=== PATIENT | female | born 1935 | race Caucasian/White ===

== ENCOUNTER 2018-01-10 07:20 | Emergency (ER) | payer MEDICARE, OTHER ==
[~2018-01-10] VITALS: Ht 144.8 cm; Wt 95.0 kg
[2018-01-10] MEDS ORDERED: SODIUM CHLORIDE FLUSH 10ML SYR IVF ONE ×2 (07:30→08:00)
[2018-01-10] MEDS ORDERED: PLEASE ENTER ALLERGIES MC SCH (07:30)
[2018-01-10] MEDS ORDERED: ASPIRIN 81 MG TABLET CHEW PO ONE (07:30)
[2018-01-10 07:45] LABS: BASOPHILS # (AUTO) 0.03 x10^3/uL (0-0.1); BASOPHILS % (AUTO) 0 % (0-1); EOSINOPHILS # (AUTO) 0.13 x10^3/uL (0-0.4); EOSINOPHILS % (AUTO) 2 % (1-7); LYMPHOCYTES # (AUTO) 0.93 x10^3/uL (1-3.4); LYMPHOCYTES % (AUTO) 11 % (22-44); MD NO; MEAN CORPUSCULAR HEMOGLOBIN 31.4 pg (27.0-34.8); MEAN CORPUSCULAR HGB CONC 33.8 g/dL (32.4-35.8); MEAN CORPUSCULAR VOLUME 92.8 fL (80-100); MEAN PLATELET VOLUME 8.5 fL (7.4-10.4); MONOCYTES # (AUTO) 0.85 x10^3/uL (0.2-0.8); MONOCYTES % (AUTO) 10 % (2-9); NEUTROPHILS # (AUTO) 6.34 x10^3/uL (1.8-6.8); NEUTROPHILS % (AUTO) 77 % (42-75); PLATELET COUNT 182 x10^3/uL (130-400); RED BLOOD COUNT 4.37 x10^6/uL (3.82-5.3)
[2018-01-10 07:56] LABS: ALANINE AMINOTRANSFERASE 20 U/L (12-78); ALBUMIN 3.5 g/dL (3.4-5.0); ANION GAP 10 mmol/L (5-15); CALCIUM 8.7 mg/dL (8.5-10.1); CHLORIDE 102 mmol/L (98-107); CREATININE 1.25 mg/dL (0.55-1.02)
[2018-01-10] MEDS ORDERED: SODIUM CHLORIDE 0.9% 1,000ML IVBOLUS ONE (08:00)
[2018-01-10] MEDS ORDERED: ACETAMINOPHEN 325 MG TABLET PO ONE (08:00)
[2018-01-10 08:01] LABS: ALKALINE PHOSPHATASE 62 U/L (45-117); BILIRUBIN,TOTAL 0.8 mg/dL (0.2-1.0); FREE T4 (FREE THYROXINE) 1.15 ng/dL (0.76-1.46); TOTAL PROTEIN 7.4 g/dL (6.4-8.2); TROPONIN I < 0.015 ng/mL (0.000-0.045)
[2018-01-10 08:06] LABS: THYROID STIMULATING HORMONE 0.942 mIU/L (0.358-3.740)
[2018-01-10] MEDS ORDERED: ACETAMINOPHEN 325 MG TABLET ONE (09:03)
[2018-01-10] MEDS ORDERED: ASPIRIN 81 MG TABLET CHEW ONE (09:03)
[2018-01-10 09:07] LABS: MICROSCOPIC NOT IND
[2018-01-10 09:14] LABS: CULTURE INDICATED? NO
[2018-01-10 10:08] VITALS: BP 127/63
[2018-01-10] MEDS ORDERED: ROSU5TAB PO (14:09)
[2018-01-10] MEDS ORDERED: LISI5TAB7 PO (14:09)
[2018-01-10] MEDS ORDERED: INSU100I7 SQ-INSULIN ×3 (14:09)
[2018-01-10] MEDS ORDERED: ASPI-496 PO (14:09)
== END 2018-01-10 10:11 | disposition home or self-care (01) ==
LOC: ED 08:45
DX: R53.1 Weakness (principal); I10 Essential (primary) hypertension; E11.9 Type 2 diabetes mellitus without complications; E78.00 Pure hypercholesterolemia, unspecified; W19.XXXA Unspecified fall, initial encounter; Y93.89 Activity, other specified; Y92.89 Other specified places as the place of occurrence of the external cause; Y99.9 Unspecified external cause status
CPT/HCPCS: 36415; 71045; 80053; 81003; 83605; 83735; 83880; 84439; 84443; 84484; 85025; 87040; 93005; 96360; 99291; J7030

== ENCOUNTER 2018-08-25 00:17 | Inpatient (IN) | payer MEDICARE, OTHER ==
[~2018-08-25] VITALS: Ht 157.5 cm; Wt 99.7 kg
[~2018-08-25 00:17] MED LIST: APIX2.5T PO; ASPI-496 PO; INSU100I7 SQ-INSULIN; LISI5TAB7 PO; METO25TA35 PO; OSEL75CA PO; QUET25TA PO; ROSU5TAB PO
[2018-08-25] MEDS ORDERED: DILTIAZEM 5 MG/ML, 5ML ONE (00:26)
[2018-08-25] MEDS ORDERED: DILTIAZEM 5 MG/ML, 5ML IV ONE (00:30)
[2018-08-25 00:44] LABS: BASOPHILS # (AUTO) 0.07 x10^3/uL (0-0.1); BASOPHILS % (AUTO) 1 % (0-1); EOSINOPHILS # (AUTO) 0.27 x10^3/uL (0-0.4); EOSINOPHILS % (AUTO) 3 % (1-7); LYMPHOCYTES # (AUTO) 1.69 x10^3/uL (1-3.4); LYMPHOCYTES % (AUTO) 15 % (22-44); MD NO; MEAN CORPUSCULAR HEMOGLOBIN 30.5 pg (27.0-34.8); MEAN CORPUSCULAR HGB CONC 32.7 g/dL (32.4-35.8); MEAN CORPUSCULAR VOLUME 93.3 fL (80-100); MEAN PLATELET VOLUME 8.9 fL (7.4-10.4); MONOCYTES # (AUTO) 0.63 x10^3/uL (0.2-0.8); MONOCYTES % (AUTO) 6 % (2-9); NEUTROPHILS # (AUTO) 8.37 x10^3/uL (1.8-6.8); NEUTROPHILS % (AUTO) 76 % (42-75); PLATELET COUNT 207 x10^3/uL (130-400); RED BLOOD COUNT 4.46 x10^6/uL (3.82-5.3); RED CELL DISTRIBUTION WIDTH 14.4 % (9.6-15.2)
[2018-08-25] MEDS ORDERED: INSULIN HUMALOG (00:51)
[2018-08-25] MEDS ORDERED: LISI-167 PO (00:51)
[2018-08-25 00:55] LABS: ALANINE AMINOTRANSFERASE 28 U/L (12-78); ALBUMIN 3.1 g/dL (3.4-5.0); ANION GAP 9 mmol/L (5-15); CHLORIDE 106 mmol/L (98-107); CREATININE 1.12 mg/dL (0.55-1.02)
[2018-08-25 01:00] LABS: ALKALINE PHOSPHATASE 87 U/L (45-117); BILIRUBIN,TOTAL 0.5 mg/dL (0.2-1.0); TOTAL PROTEIN 7.5 g/dL (6.4-8.2); TROPONIN I < 0.015 ng/mL (0.000-0.045)
[2018-08-25] MEDS ORDERED: DILTIAZEM 125 MG in SODIUM CHLORIDE 0.9% 100 ML IV PRN (01:30)
[2018-08-25] MEDS ORDERED: METOPROLOL 1 MG/ML, 5ML ONE (02:40)
[2018-08-25] MEDS ORDERED: METOPROLOL 1 MG/ML, 5ML IVPush PRN (03:00)
[2018-08-25 03:15] VITALS: BP 117/80
[2018-08-25] MEDS ORDERED: ONDANSETRON 2MG/ML, 2ML IVPush PRN (03:30)
[2018-08-25] MEDS ORDERED: FUROSEMIDE 20 MG/2 ML IV ONE (03:30)
[2018-08-25] MEDS ORDERED: ACETAMINOPHEN 325 MG TABLET PO PRN (03:30)
[2018-08-25] MEDS ORDERED: APIXABAN 5 MG TABLET PO SCH (04:00)
[2018-08-25 04:40] LABS: HEMOGLOBIN A1C 8.1 % (4.2-6.3)
[2018-08-25] MEDS ORDERED: METOPROLOL TARTRATE 25 MG TABLET PO SCH (06:00)
[2018-08-25] MEDS ORDERED: INSULIN LISPRO 100 UNITS/ML, PEN SQ-INSULIN SCH (07:00)
[2018-08-25] MEDS ORDERED: [UNRECOGNIZED DRUG - OTHER] SQ-INSULIN SCH ×3 (07:30→16:30)
[2018-08-25] MEDS ORDERED: INSULIN LISPRO SQ-INSULIN SCH ×3 (07:30→16:30)
[2018-08-25] MEDS ORDERED: INSULIN NPL SQ-INSULIN SCH ×3 (07:30→16:30)
[2018-08-25] MEDS ORDERED: APIXABAN 2.5 MG TABLET PO SCH (09:00)
[2018-08-25] MEDS ORDERED: ASPIRIN 81 MG TABLET CHEW PO SCH (09:00)
[2018-08-25] MEDS ORDERED: ATORVASTATIN 10 MG TABLET PO SCH (21:00)
== END 2018-08-25 05:01 | disposition left against medical advice (07) | DRG 308 ==
LOC: EDBD 00:17 → ED 01:43 → EDIP 01:53 → MERGE 01:53 → 5SO 03:11
PROVIDERS: ADMIT Internal Medicine; ATTEND Internal Medicine
DX: I48.91 Unspecified atrial fibrillation (principal); I50.31 Acute diastolic (congestive) heart failure; Z68.41 Body mass index [BMI] 40.0-44.9, adult; I11.0 Hypertensive heart disease with heart failure; E11.65 Type 2 diabetes mellitus with hyperglycemia; E66.01 Morbid (severe) obesity due to excess calories; Z53.21 Procedure and treatment not carried out due to patient leaving prior to being seen by health care provider; E78.5 Hyperlipidemia, unspecified; Z79.01 Long term (current) use of anticoagulants; Z79.4 Long term (current) use of insulin; Z79.82 Long term (current) use of aspirin; Z79.899 Other long term (current) drug therapy; Z91.19 Patient's noncompliance with other medical treatment and regimen
CPT/HCPCS: 36415; 71045; 80053; 82962; 83036; 83735; 83880; 84443; 84484; 85025; 93005; 96365; 96375; 96376; G0378

== ENCOUNTER 2018-09-01 03:00 | Inpatient (IN) | payer MEDICARE, OTHER ==
[~2018-09-01] VITALS: Ht 157.5 cm; Wt 101.8 kg
[~2018-09-01 03:00] MED LIST changes: +INSULIN HUMALOG; +LISI-167 PO
[2018-09-01] MEDS ORDERED: ADENOSINE 6 MG/2 ML ONE (03:08)
[2018-09-01] MEDS ORDERED: DILTIAZEM 5 MG/ML, 5ML ONE ×2 (03:19→04:25)
[2018-09-01] MEDS ORDERED: DILTIAZEM 125 MG in SODIUM CHLORIDE 0.9% 100 ML IV SCH (03:21)
[2018-09-01] MEDS ORDERED: DILTIAZEM 5 MG/ML, 5ML IVPush STA (03:21)
[2018-09-01 03:29] LABS: BASOPHILS # (AUTO) 0.03 x10^3/uL (0-0.1); BASOPHILS % (AUTO) 0 % (0-1); EOSINOPHILS # (AUTO) 0.11 x10^3/uL (0-0.4); EOSINOPHILS % (AUTO) 1 % (1-7); LYMPHOCYTES # (AUTO) 1.19 x10^3/uL (1-3.4); LYMPHOCYTES % (AUTO) 13 % (22-44); MD NO; MEAN CORPUSCULAR HEMOGLOBIN 31.1 pg (27.0-34.8); MEAN CORPUSCULAR HGB CONC 33.2 g/dL (32.4-35.8); MEAN CORPUSCULAR VOLUME 93.7 fL (80-100); MEAN PLATELET VOLUME 8.5 fL (7.4-10.4); MONOCYTES # (AUTO) 0.53 x10^3/uL (0.2-0.8); MONOCYTES % (AUTO) 6 % (2-9); NEUTROPHILS % (AUTO) 80 % (42-75); PLATELET COUNT 253 x10^3/uL (130-400); RED BLOOD COUNT 4.44 x10^6/uL (3.82-5.3); RED CELL DISTRIBUTION WIDTH 14.8 % (9.6-15.2)
[2018-09-01] MEDS ORDERED: ADENOSINE 6 MG/2 ML IVPush ONE (03:30)
[2018-09-01] MEDS ORDERED: SODIUM CHLORIDE FLUSH 10ML SYR IVF ONE (03:30)
[2018-09-01 03:40] LABS: INTERNATIONAL NORMALIZED RATIO 1.06 (0.93-1.1); PROTHROMBIN TIME 10.9 Seconds (9.6-11.5)
[2018-09-01 03:41] LABS: ALANINE AMINOTRANSFERASE 27 U/L (12-78); ANION GAP 12 mmol/L (5-15); CHLORIDE 102 mmol/L (98-107); CREATININE 1.22 mg/dL (0.55-1.02)
[2018-09-01] MEDS ORDERED: ACETAMINOPHEN 325 MG TABLET ONE (03:45)
[2018-09-01 03:46] LABS: ALKALINE PHOSPHATASE 85 U/L (45-117); BILIRUBIN,TOTAL 0.9 mg/dL (0.2-1.0); TOTAL PROTEIN 7.6 g/dL (6.4-8.2); TROPONIN I 0.027 ng/mL (0.000-0.045)
[2018-09-01] MEDS ORDERED: LORazepam 2 MG/ML, 1ML IVPush ONE (04:00)
[2018-09-01] MEDS ORDERED: DIGOXIN 0.25 MG/ML, 2ML IVPush ONE ×2 (04:00→05:00)
[2018-09-01] MEDS ORDERED: ACETAMINOPHEN 325 MG TABLET PO ONE (04:00)
[2018-09-01] MEDS ORDERED: LORazepam 2 MG/ML, 1ML ONE (04:01)
[2018-09-01] MEDS ORDERED: DIGOXIN 0.25 MG/ML, 2ML ONE (04:01)
[2018-09-01] MEDS ORDERED: FUROSEMIDE 20 MG/2 ML ONE (04:18)
[2018-09-01] MEDS ORDERED: FUROSEMIDE 20 MG/2 ML IV ONE ×2 (04:30→05:30)
[2018-09-01] MEDS ORDERED: DILTIAZEM 5 MG/ML, 5ML IVPush ONE (04:30)
[2018-09-01] MEDS ORDERED: METOPROLOL 1 MG/ML, 5ML ONE (04:54)
[2018-09-01] MEDS ORDERED: METOPROLOL 1 MG/ML, 5ML IVPush ONE (05:00)
[2018-09-01] MEDS ORDERED: PROMETHAZINE 25 MG/ML, 1ML IM PRN (05:30)
[2018-09-01] MEDS ORDERED: BISACODYL 10 MG SUPP PR PRN (05:30)
[2018-09-01] MEDS ORDERED: ONDANSETRON ODT 4 MG PO PRN (05:30)
[2018-09-01] MEDS ORDERED: morphine SULFATE 10 MG/ML, 1ML IVPush PRN (05:30)
[2018-09-01] MEDS ORDERED: ONDANSETRON 2MG/ML, 2ML IVPush PRN (05:30)
[2018-09-01] MEDS ORDERED: LABETALOL 5MG/ML, 20ML IVPush PRN (05:30)
[2018-09-01] MEDS ORDERED: POLYETHYLENE GLYCOL 17 GM PACKET PO PRN (05:30)
[2018-09-01] MEDS ORDERED: DOCUSATE 100 MG CAPSULE PO PRN (05:30)
[2018-09-01 05:35] LABS: MICROSCOPIC NOT IND
[2018-09-01 05:40] LABS: CULTURE INDICATED? NO
[2018-09-01] MEDS ORDERED: ASPIRIN 325 MG TABLET EC PO SCH (06:00)
[2018-09-01] MEDS: METOPROLOL TARTRATE 25 MG TABLET PO SCH ×2 (06:00→17:46)
[2018-09-01 06:02] LABS: HEMOGLOBIN A1C 8.1 % (4.2-6.3)
[2018-09-01 06:30] VITALS: BP 95/61
[2018-09-01 06:56] LABS: FREE T4 (FREE THYROXINE) 1.47 ng/dL (0.76-1.46); THYROID STIMULATING HORMONE 0.973 mIU/L (0.358-3.740)
[2018-09-01] MEDS: INSULIN LISPRO 100 UNITS/ML, PEN SQ-INSULIN SCH ×4 (07:00→20:59)
[2018-09-01 08:34] VITALS: BP 135/73
[2018-09-01] MEDS: RISPERIDONE 0.5 MG TABLET PO SCH ×2 (09:00→20:59)
[2018-09-01] MEDS ORDERED: LISINOPRIL 10 MG TABLET PO SCH (09:00)
[2018-09-01] MEDS ORDERED: RISPERIDONE 1 MG TABLET ONE ×2 (09:38→20:49)
[2018-09-01] MEDS: FUROSEMIDE 20 MG/2 ML IV SCH ×3 (09:43→17:00)
[2018-09-01] MEDS: APIXABAN 5 MG TABLET PO SCH ×2 (11:33→20:58)
[2018-09-01] MEDS: DILTIAZEM 60 MG TABLET PO SCH ×3 (11:34→20:58)
[2018-09-01] MEDS: DILTIAZEM 125 MG in SODIUM CHLORIDE 0.9% 100 ML IV PRN ×2 (14:23→22:39)
[2018-09-01 15:10] VITALS: BP 119/67
[2018-09-01 19:35] VITALS: BP 125/73
[2018-09-01] MEDS: ATORVASTATIN 20 MG TABLET PO SCH (20:57)
[2018-09-02] VITALS (10 sets, daily range): BP systolic 96–150; BP diastolic 66–96
[2018-09-02] MEDS ORDERED: LORazepam 2 MG/ML, 1ML IVPush ONE
[2018-09-02] MEDS: ACETAMINOPHEN 325 MG TABLET PO PRN ×2 (04:50→18:30)
[2018-09-02 05:24] LABS: BASOPHILS # (AUTO) 0.03 x10^3/uL (0-0.1); BASOPHILS % (AUTO) 0 % (0-1); EOSINOPHILS % (AUTO) 2 % (1-7); LYMPHOCYTES # (AUTO) 1.11 x10^3/uL (1-3.4); LYMPHOCYTES % (AUTO) 13 % (22-44); MD NO; MEAN CORPUSCULAR HGB CONC 32.8 g/dL (32.4-35.8); MEAN CORPUSCULAR VOLUME 94.5 fL (80-100); MEAN PLATELET VOLUME 8.4 fL (7.4-10.4); MONOCYTES # (AUTO) 0.53 x10^3/uL (0.2-0.8); MONOCYTES % (AUTO) 6 % (2-9); NEUTROPHILS % (AUTO) 78 % (42-75); PLATELET COUNT 234 x10^3/uL (130-400); RED BLOOD COUNT 4.13 x10^6/uL (3.82-5.3); RED CELL DISTRIBUTION WIDTH 14.6 % (9.6-15.2)
[2018-09-02 05:31] LABS: ALANINE AMINOTRANSFERASE 21 U/L (12-78); ALBUMIN 2.7 g/dL (3.4-5.0); ANION GAP 11 mmol/L (5-15); CALCIUM 8.8 mg/dL (8.5-10.1); CHLORIDE 104 mmol/L (98-107); CHOLESTEROL, TOTAL 136 mg/dL (140-239); CREATININE 0.97 mg/dL (0.55-1.02)
[2018-09-02 05:34] LABS: ALKALINE PHOSPHATASE 72 U/L (45-117); BILIRUBIN,TOTAL 1.2 mg/dL (0.2-1.0); CHOL/HDL RATIO 3.3; HDL CHOL % 30 % (28-40); HDL CHOLESTEROL (DIRECT) 41 mg/dL (40-60); LDL CHOLESTEROL,CALCULATED 76 mg/dL (54-169); LDL/HDL RATIO 1.9 (0.5-3.0); TOTAL PROTEIN 6.7 g/dL (6.4-8.2); TRIGLYCERIDES 95 mg/dL (50-200); VLDL CHOLESTEROL 19 mg/dL (0-25)
[2018-09-02] MEDS: METOPROLOL TARTRATE 25 MG TABLET PO SCH ×2 (06:07→17:14)
[2018-09-02] MEDS: INSULIN LISPRO 100 UNITS/ML, PEN SQ-INSULIN SCH ×4 (07:47→21:00)
[2018-09-02] MEDS: DILTIAZEM 125 MG in SODIUM CHLORIDE 0.9% 100 ML IV PRN ×2 (09:23→12:43)
[2018-09-02] MEDS: DILTIAZEM 60 MG TABLET PO SCH ×4 (09:24→23:21)
[2018-09-02] MEDS: APIXABAN 5 MG TABLET PO SCH ×4 (09:24→23:21)
[2018-09-02] MEDS: FUROSEMIDE 20 MG/2 ML IV SCH ×2 (09:24→17:15)
[2018-09-02] MEDS: RISPERIDONE 0.5 MG TABLET PO SCH ×4 (09:25→23:22)
[2018-09-02] MEDS: METOPROLOL 1 MG/ML, 5ML IVPush PRN (12:05)
[2018-09-02] MEDS ORDERED: ZIPRASIDONE 20 MG INJ IM PRN (13:00)
[2018-09-02] MEDS: ATORVASTATIN 20 MG TABLET PO SCH ×3 (21:17→23:57)
[2018-09-03] VITALS (9 sets, daily range): BP systolic 108–164; BP diastolic 71–94
[2018-09-03] MEDS ORDERED: ALBUTEROL/IPRATROPIUM 2.5MG/0.5MG, 3 ML ONE (03:59)
[2018-09-03] MEDS ORDERED: FUROSEMIDE 40 MG/4 ML IV ONE (04:00)
[2018-09-03] MEDS ORDERED: ALBUTEROL/IPRATROPIUM 2.5MG/0.5MG, 3 ML NPPB PRN (04:30)
[2018-09-03] MEDS ORDERED: ZIPRASIDONE 20 MG INJ IM ONE (05:30)
[2018-09-03] MEDS ORDERED: DILTIAZEM 125 MG in SODIUM CHLORIDE 0.9% 100 ML IV PRN (05:30)
[2018-09-03] MEDS ORDERED: RISPERIDONE 1 MG TABLET ONE (08:14)
[2018-09-03] MEDS: METOPROLOL TARTRATE 25 MG TABLET PO SCH ×2 (08:28→17:11)
[2018-09-03] MEDS: APIXABAN 5 MG TABLET PO SCH ×3 (08:29→21:30)
[2018-09-03] MEDS: INSULIN LISPRO 100 UNITS/ML, PEN SQ-INSULIN SCH ×4 (08:41→20:09)
[2018-09-03] MEDS: DILTIAZEM 60 MG TABLET PO SCH (08:44)
[2018-09-03] MEDS: RISPERIDONE 0.5 MG TABLET PO SCH ×2 (08:45→21:29)
[2018-09-03] MEDS: DILTIAZEM 125 MG in SODIUM CHLORIDE 0.9% 100 ML IV PRN ×2 (10:25→23:15)
[2018-09-03] MEDS: FUROSEMIDE 20 MG/2 ML IV SCH ×2 (10:26→17:11)
[2018-09-03] MEDS: METOPROLOL 1 MG/ML, 5ML IVPush PRN ×2 (10:26→15:24)
[2018-09-03] MEDS: DILTIAZEM 120 MG TABLET PO SCH (21:28)
[2018-09-03] MEDS: ATORVASTATIN 20 MG TABLET PO SCH (21:30)
[2018-09-04] MEDS: METOPROLOL 1 MG/ML, 5ML IVPush PRN (02:35)
[2018-09-04 02:56] VITALS: BP 136/83
[2018-09-04] MEDS: METOPROLOL TARTRATE 25 MG TABLET PO SCH ×2 (05:43→17:33)
[2018-09-04 07:42] VITALS: BP 116/71
[2018-09-04] MEDS: INSULIN LISPRO 100 UNITS/ML, PEN SQ-INSULIN SCH ×4 (08:07→20:17)
[2018-09-04] MEDS: APIXABAN 5 MG TABLET PO SCH ×2 (08:09→20:19)
[2018-09-04] MEDS: DILTIAZEM 120 MG TABLET PO SCH ×3 (08:11→20:17)
[2018-09-04] MEDS: FUROSEMIDE 20 MG/2 ML IV SCH ×2 (08:12→17:35)
[2018-09-04] MEDS: RISPERIDONE 0.5 MG TABLET PO SCH (09:00)
[2018-09-04] MEDS ORDERED: DILTIAZEM 125 MG in SODIUM CHLORIDE 0.9% 100 ML IV PRN (10:30)
[2018-09-04 14:09] VITALS: BP 107/62
[2018-09-04 17:32] VITALS: BP 126/72
[2018-09-04 18:32] VITALS: BP 100/67
[2018-09-04] MEDS: QUETIAPINE 25MG TABLET PO SCH (20:19)
[2018-09-04] MEDS: ATORVASTATIN 20 MG TABLET PO SCH (20:19)
[2018-09-04] MEDS ORDERED: QUETIAPINE 25MG TABLET PO SCH (21:00)
[2018-09-05 02:00] VITALS: BP 125/87
[2018-09-05] MEDS: METOPROLOL TARTRATE 25 MG TABLET PO SCH ×2 (05:20→18:09)
[2018-09-05 05:30] LABS: BASOPHILS # (AUTO) 0.09 x10^3/uL (0-0.1); BASOPHILS % (AUTO) 1 % (0-1); EOSINOPHILS # (AUTO) 0.27 x10^3/uL (0-0.4); EOSINOPHILS % (AUTO) 3 % (1-7); LYMPHOCYTES # (AUTO) 1.52 x10^3/uL (1-3.4); LYMPHOCYTES % (AUTO) 16 % (22-44); MD NO; MEAN CORPUSCULAR HEMOGLOBIN 30.8 pg (27.0-34.8); MEAN CORPUSCULAR HGB CONC 32.9 g/dL (32.4-35.8); MEAN CORPUSCULAR VOLUME 93.8 fL (80-100); MEAN PLATELET VOLUME 8.5 fL (7.4-10.4); MONOCYTES # (AUTO) 0.83 x10^3/uL (0.2-0.8); MONOCYTES % (AUTO) 9 % (2-9); NEUTROPHILS # (AUTO) 6.77 x10^3/uL (1.8-6.8); NEUTROPHILS % (AUTO) 71 % (42-75); PLATELET COUNT 238 x10^3/uL (130-400); RED BLOOD COUNT 4.18 x10^6/uL (3.82-5.3); RED CELL DISTRIBUTION WIDTH 14.6 % (9.6-15.2)
[2018-09-05 05:40] LABS: ANION GAP 9 mmol/L (5-15); CHLORIDE 99 mmol/L (98-107)
[2018-09-05 05:41] LABS: CREATININE 1.32 mg/dL (0.55-1.02)
[2018-09-05 07:51] VITALS: BP 118/82
[2018-09-05] MEDS: INSULIN LISPRO 100 UNITS/ML, PEN SQ-INSULIN SCH ×4 (07:55→20:17)
[2018-09-05] MEDS: APIXABAN 5 MG TABLET PO SCH ×2 (07:57→20:04)
[2018-09-05] MEDS: DILTIAZEM 120 MG TABLET PO SCH ×3 (07:57→20:04)
[2018-09-05] MEDS: QUETIAPINE 25MG TABLET PO SCH ×2 (07:57→20:05)
[2018-09-05] MEDS: FUROSEMIDE 20 MG/2 ML IV SCH (08:02)
[2018-09-05] MEDS: INSULIN GLARGINE 100 UNITS/ML, PEN SQ-INSULIN SCH (10:03)
[2018-09-05 15:11] VITALS: BP 125/68
[2018-09-05] MEDS ORDERED: FUROSEMIDE 20 MG TABLET PO SCH (17:00)
[2018-09-05 18:07] VITALS: BP 108/66
[2018-09-05 19:49] VITALS: BP 106/64
[2018-09-05] MEDS: ATORVASTATIN 20 MG TABLET PO SCH (20:05)
[2018-09-05] MEDS: ACETAMINOPHEN 325 MG TABLET PO PRN (20:17)
[2018-09-06 01:25] VITALS: BP 109/78
[2018-09-06] MEDS: METOPROLOL TARTRATE 25 MG TABLET PO SCH ×2 (05:13→17:15)
[2018-09-06 07:17] VITALS: BP 109/60
[2018-09-06 08:53] LABS: ANION GAP 7 mmol/L (5-15); CALCIUM 8.9 mg/dL (8.5-10.1); CHLORIDE 100 mmol/L (98-107); CREATININE 1.17 mg/dL (0.55-1.02)
[2018-09-06] MEDS ORDERED: DILTIAZEM 60 MG TABLET ONE ×2 (09:15→16:41)
[2018-09-06] MEDS: INSULIN LISPRO 100 UNITS/ML, PEN SQ-INSULIN SCH ×4 (09:20→19:43)
[2018-09-06] MEDS: INSULIN GLARGINE 100 UNITS/ML, PEN SQ-INSULIN SCH (09:20)
[2018-09-06] MEDS: FUROSEMIDE 20 MG TABLET PO SCH (09:21)
[2018-09-06] MEDS: DILTIAZEM 120 MG TABLET PO SCH ×3 (09:21→19:44)
[2018-09-06] MEDS: QUETIAPINE 25MG TABLET PO SCH ×2 (09:22→19:44)
[2018-09-06] MEDS: APIXABAN 5 MG TABLET PO SCH ×3 (09:22→20:05)
[2018-09-06] MEDS: ACETAMINOPHEN 325 MG TABLET PO PRN (11:56)
[2018-09-06] MEDS: DIGOXIN 0.125 MG TABLET PO SCH (11:56)
[2018-09-06 13:24] VITALS: BP 94/84
[2018-09-06 16:45] VITALS: BP 119/63
[2018-09-06 19:29] VITALS: BP 113/76
[2018-09-06] MEDS: ATORVASTATIN 20 MG TABLET PO SCH (19:43)
[2018-09-07 02:05] VITALS: BP 92/58
[2018-09-07 05:45] LABS: BASOPHILS # (AUTO) 0.07 x10^3/uL (0-0.1); BASOPHILS % (AUTO) 1 % (0-1); EOSINOPHILS # (AUTO) 0.18 x10^3/uL (0-0.4); EOSINOPHILS % (AUTO) 2 % (1-7); LYMPHOCYTES # (AUTO) 1.35 x10^3/uL (1-3.4); LYMPHOCYTES % (AUTO) 16 % (22-44); MD NO; MEAN CORPUSCULAR HEMOGLOBIN 31.3 pg (27.0-34.8); MEAN CORPUSCULAR HGB CONC 33.5 g/dL (32.4-35.8); MEAN CORPUSCULAR VOLUME 93.4 fL (80-100); MEAN PLATELET VOLUME 8.4 fL (7.4-10.4); MONOCYTES # (AUTO) 0.58 x10^3/uL (0.2-0.8); MONOCYTES % (AUTO) 7 % (2-9); NEUTROPHILS # (AUTO) 6.29 x10^3/uL (1.8-6.8); NEUTROPHILS % (AUTO) 74 % (42-75); PLATELET COUNT 243 x10^3/uL (130-400); RED BLOOD COUNT 4.05 x10^6/uL (3.82-5.3); RED CELL DISTRIBUTION WIDTH 14.1 % (9.6-15.2)
[2018-09-07 05:51] VITALS: BP 117/71
[2018-09-07] MEDS: METOPROLOL TARTRATE 25 MG TABLET PO SCH ×2 (05:56→17:25)
[2018-09-07 05:57] LABS: ANION GAP 8 mmol/L (5-15); CALCIUM 8.8 mg/dL (8.5-10.1); CHLORIDE 98 mmol/L (98-107); CREATININE 1.04 mg/dL (0.55-1.02)
[2018-09-07 06:48] VITALS: BP 103/59
[2018-09-07] MEDS: INSULIN GLARGINE 100 UNITS/ML, PEN SQ-INSULIN SCH (08:07)
[2018-09-07] MEDS: APIXABAN 5 MG TABLET PO SCH ×2 (08:08→19:51)
[2018-09-07] MEDS: INSULIN LISPRO 100 UNITS/ML, PEN SQ-INSULIN SCH ×4 (08:08→19:53)
[2018-09-07] MEDS: QUETIAPINE 25MG TABLET PO SCH ×2 (08:09→19:51)
[2018-09-07] MEDS: DILTIAZEM 120 MG TABLET PO SCH ×3 (08:09→19:51)
[2018-09-07] MEDS: DIGOXIN 0.125 MG TABLET PO SCH (08:09)
[2018-09-07] MEDS: FUROSEMIDE 20 MG TABLET PO SCH (08:09)
[2018-09-07 12:54] VITALS: BP 153/82
[2018-09-07 17:25] VITALS: BP 119/83
[2018-09-07] MEDS: ATORVASTATIN 20 MG TABLET PO SCH (19:51)
[2018-09-07 20:31] VITALS: BP 106/66
[2018-09-08] VITALS: BP 113/67
[2018-09-08] MEDS: METOPROLOL TARTRATE 25 MG TABLET PO SCH ×2 (06:23→18:08)
[2018-09-08 07:05] VITALS: BP 121/80
[2018-09-08] MEDS: INSULIN LISPRO 100 UNITS/ML, PEN SQ-INSULIN SCH ×4 (07:57→20:01)
[2018-09-08] MEDS: DILTIAZEM 120 MG TABLET PO SCH ×3 (08:28→19:51)
[2018-09-08] MEDS: DIGOXIN 0.125 MG TABLET PO SCH (08:29)
[2018-09-08] MEDS: FUROSEMIDE 20 MG TABLET PO SCH (08:29)
[2018-09-08] MEDS: INSULIN GLARGINE 100 UNITS/ML, PEN SQ-INSULIN SCH (08:29)
[2018-09-08] MEDS: APIXABAN 5 MG TABLET PO SCH ×2 (08:29→19:51)
[2018-09-08] MEDS: QUETIAPINE 25MG TABLET PO SCH ×2 (08:29→19:52)
[2018-09-08 12:10] VITALS: BP 121/71
[2018-09-08 12:20] VITALS: BP 147/74
[2018-09-08 18:00] VITALS: BP 90/55
[2018-09-08 19:01] VITALS: BP 105/54
[2018-09-08] MEDS: ATORVASTATIN 20 MG TABLET PO SCH (19:52)
[2018-09-09 03:01] VITALS: BP 105/58
[2018-09-09] MEDS: METOPROLOL TARTRATE 25 MG TABLET PO SCH (05:14)
[2018-09-09 07:00] VITALS: BP 110/62
[2018-09-09] MEDS: INSULIN LISPRO 100 UNITS/ML, PEN SQ-INSULIN SCH (07:57)
[2018-09-09] MEDS: FUROSEMIDE 20 MG TABLET PO SCH (08:57)
[2018-09-09] MEDS: QUETIAPINE 25MG TABLET PO SCH (08:57)
[2018-09-09] MEDS: APIXABAN 5 MG TABLET PO SCH (08:57)
[2018-09-09] MEDS: DIGOXIN 0.125 MG TABLET PO SCH (08:58)
[2018-09-09] MEDS: INSULIN GLARGINE 100 UNITS/ML, PEN SQ-INSULIN SCH (08:58)
[2018-09-09] MEDS: DILTIAZEM 120 MG TABLET PO SCH (09:12)
== END 2018-09-09 10:30 | disposition hospice, home (50) | DRG 682 ==
LOC: ED 03:19 → EDIP 04:21 → 5SO 05:28
PROVIDERS: ADMIT Internal Medicine; ATTEND Family Medicine
PROC: 5A2204Z Restoration of Cardiac Rhythm, Single (ICD-10-PCS; principal; 2018-09-01)
DX: N17.0 Acute kidney failure with tubular necrosis (principal); I50.43 Acute on chronic combined systolic (congestive) and diastolic (congestive) heart failure; J96.01 Acute respiratory failure with hypoxia; I48.92 Unspecified atrial flutter; D68.69 Other thrombophilia; E46 Unspecified protein-calorie malnutrition; Z68.41 Body mass index [BMI] 40.0-44.9, adult; E66.01 Morbid (severe) obesity due to excess calories; I25.5 Ischemic cardiomyopathy; Z91.14 Patient's other noncompliance with medication regimen; E78.5 Hyperlipidemia, unspecified; I48.0 Paroxysmal atrial fibrillation; F01.50 Vascular dementia, unspecified severity, without behavioral disturbance, psychotic disturbance, mood disturbance, and anxiety; E11.9 Type 2 diabetes mellitus without complications; E78.00 Pure hypercholesterolemia, unspecified; I11.0 Hypertensive heart disease with heart failure; I25.10 Atherosclerotic heart disease of native coronary artery without angina pectoris; Z51.5 Encounter for palliative care; Z79.82 Long term (current) use of aspirin; Z79.899 Other long term (current) drug therapy; Z95.5 Presence of coronary angioplasty implant and graft
CPT/HCPCS: 36415; 51702; 70450; 71045; 80048; 80053; 80061; 81003; 82962; 83036; 83735; 83880; 84439; 84443; 84484; 85025; 85610; 85730; 92960; 93005; 93306; 94640; 96374; 96375; 96376; 99291; G0378; J0153; J1940; J3486; J1160; J1815; J2060